=== PATIENT | female | born 1935 | race Caucasian/White ===

== ENCOUNTER 2017-01-22 07:07 | Inpatient (IN) ==
[2017-01-22] MEDS ORDERED: Ipratropium/Albuterol Neb 3 ML IH ONE (07:12)
--- NOTE | 2017-01-22 07:13 | Emergency Department Note ---
Disposition Clinical Impression: Community acquired pneumonia Disposition: Admitted As Inpatient Condition: Good SOB HPI - General Chief Complaint: ED Shortness of Breath/Dyspnea Stated Complaint: sob/resp distress Time Seen by Provider: 01/22/17 07:11 Nursing Notes Reviewed: Yes Vital Signs Reviewed: Yes - Related Data Home Medications Medication Instructions Recorded Confirmed BuPROPion SR (12 HR) [Wellbutrin 100 mg PO BID 01/18/17 01/22/17 SR] Clopidogrel [Plavix] 75 mg PO DAILY 01/18/17 01/22/17 Levothyroxine [Synthroid] 25 mcg PO DAILY 01/18/17 01/22/17 Loperamide [Imodium] 2 mg PO Q6H PRN 01/18/17 01/22/17 Mag Hydrox/Al Hydrox/Simeth 30 ml PO TID PRN 01/18/17 01/22/17 [Antacid Suspension] Magnesium Hydroxide [Milk of 30 ml PO PRN PRN 01/18/17 01/22/17 Magnesia] Omeprazole [PriLOSEC] 20 mg PO DAILY 01/18/17 01/22/17 Vit C/E/Zinc/Lutein/Zeaxanthin 1 tab PO DAILY 01/18/17 01/22/17 [Ocuvite Eye Health Gummies] Ipratropium/Albuterol Neb [Duoneb] 3 ml IH Q4HR PRN 01/22/17 01/22/17 OxyCODONE/APAP 5/325 [Percocet 1 tab PO Q4HR PRN 01/22/17 01/22/17 5/325 MG] Previous Rx's Medication Instructions Recorded Ibuprofen 400 mg PO TID #14 tablet 01/05/17 Fentanyl 100 mcg TD Q72H #5 patch.td72 01/18/17 Allergies Allergy/AdvReac Type Severity Reaction Status Date / Time aspirin Allergy Heartburn Verified 01/22/17 07:10 Penicillins Allergy Hives Verified 01/22/17 07:10 Past Medical History - Past Medical History Medical history: Reports: CVA, myocardial infarction, osteoporosis Psychiatric history: Reports: no psych history - Social History Smoking Status: Former smoker Smokeless Tobacco Status: No Alcohol use: Reports: none Drug use: Reports: none Course Vital Signs Temperature 98.2 F 01/22/17 07:11 Pulse Rate 128 01/22/17 07:11 Respiratory Rate 32 01/22/17 07:11 Blood Pressure 108/74 01/22/17 07:11 O2 Sat by Pulse Oximetry 85 01/22/17 07:11 Temperature 98.2 F 01/22/17 07:11 Pulse Rate 123 01/22/17 09:33 Respiratory Rate 16 01/22/17 10:00 Blood Pressure 119/89 01/22/17 10:00 O2 Sat by Pulse Oximetry 98 01/22/17 09:33 Oxygen Delivery Oxygen Delivery Non Rebreather Mask Shortness of Breath/Dyspnea - MDM Narrative Medical decision making narrative: I examined this patient and my medical decision-making was reviewed with the RADIO COMMENTATOR/PA/Advanced Practice Nurse/Resident Physician. I agree with the documented findings, disposition and treatment plan as described except to the extent set forth below. Patient arrives by EMS from nursing facility. She was seen by Dr. Kee and myself, I agree with her evaluation and management plan, supervised the care of the patient stay. Patient EMS and daughter state that she has had COPD. He is on oxygen sporadically but not all the time. Has had increased cough for last 24 hours. No history of pneumonia. She has no history of CHF. She does have wheezing and rhonchi. Had breathing treatments prior to arrival. We will go ahead and check labs EKG chest x-ray and reassess. She is a recent fall and fractured her left wrist she supposed to have surgery at [facility] tomorrow by Dr. Urrutia. Patient denies any other falls and daughter agrees with that. She is updated on the plan is in agreement with this. Chest X-Ray 01/22/17 07:12 IMPRESSION: Bibasilar airspace disease. D/ / Tera Fair MD / Tera Fair MD Interpreting Provider: Tera Fair MD 0747 hrs.: Patient does not show true pneumonia on x-ray. Has had a sputum change though. Started on Levaquin. If she has elevation in her white count then we will consider adding on a triple antibiotic therapy. Patient is doing well with her breathing treatment at this time. 0915 hours: Patient a repeat EKG which shows a sinus tachycardia, rates 121, QRS is 128, QTC is 396, has a right axis deviation and a right bundle branch block consistent with the previous EKG that was done earlier today but was difficult to read due to artifact from motion. Old EKG was in 2013 which showed a right axis deviation and right bundle branch block then also. Due to patient's elevated lactate and elevated white count. It were going to go ahead and finish fluids. Double cover her with antibiotics using aztreonam and Levaquin. Since she is penicillin allergic. We will hold off on vancomycin at this time. We spoke with hospitalist regarding this also. Her troponin is elevated but no chest pain here. She is allergic to aspirin so oriented to discuss the allergies aspirin whether she needs aspirin or Plavix. Patient will be admitted to The hospitalist service. Her critical care time exclusively separately billable procedures is 40 minutes. 0930 hrs.: Spoke with the patient about aspirin allergy shots on a true allergy but she said GI bleed in the past so will not administer aspirin or Plavix at this time. Family's agreement this plan. Troponin is elevated which is most likely due to elevation in her creatinine which is new for her also. - Lab Data Result diagrams: 01/22/17 08:37 01/22/17 08:37 Lab Results 01/22/17 01/22/17 01/22/17 Range/Units 08:37 08:37 08:37 WBC 13.1 H (4.3-11.1) K/mcL RBC 3.99 (3.82-4.97) M/mcL Hgb 10.1 L (11.5-15.4) g/dL Hct 32.4 L (35.3-44.9) % MCV 81.2 L (83.0-100.0) fL MCH 25.3 L (28.0-33.3) pg MCHC 31.2 L (31.6-35.5) g/dL RDW 15.1 H (11.5-14.5) % Plt Count 549 H D (140-400) K/mcL MPV 9.5 (9.4-12.4) fL Seg Neutrophils % 42.0 % Band Neutrophils % 50.0 H (0-4) % Lymphocytes % 2.0 % Monocytes % 6.0 % Neutrophils # 12.1 H (1.6-8.9) K/mcL Lymphocytes # 0.3 L (0.6-4.6) K/mcL Monocytes # 0.8 (0.0-1.3) K/mcL Platelet Estimate Increased H (Normal) Large Platelets Present A (Not Present) Immature Plt Fraction 3.9 (1.1-6.1) % Sodium 135 L (136-145) mEq/L Potassium 4.8 H (3.5-4.5) mEq/L Chloride 104 (98-109) mEq/L Carbon Dioxide 15 L (19-29) mEq/L BUN 53 H (7-20) mg/dL Creatinine 2.96 H (0.57-1.11) mg/dL Est GFR ( Amer) 18 L (> 60) Est GFR (Non-Af Amer) 15 L (> 60) BUN/Creatinine Ratio 18 (6-26) Glucose 113 H (70-99) mg/dL Calculated Osmolality 295 (280-300) Lactic Acid 2.9 H (0.5-2.2) mmol/L Calcium 8.9 (8.6-10.8) mg/dL Troponin I (0-0.03) ng/mL B-Natriuretic Peptide (0-100) pg/mL 01/22/17 01/22/17 Range/Units 08:37 08:37 WBC (4.3-11.1) K/mcL RBC (3.82-4.97) M/mcL Hgb (11.5-15.4) g/dL Hct (35.3-44.9) % MCV (83.0-100.0) fL MCH (28.0-33.3) pg MCHC (31.6-35.5) g/dL RDW (11.5-14.5) % Plt Count (140-400) K/mcL MPV (9.4-12.4) fL Seg Neutrophils % % Band Neutrophils % (0-4) % Lymphocytes % % Monocytes % % Neutrophils # (1.6-8.9) K/mcL Lymphocytes # (0.6-4.6) K/mcL Monocytes # (0.0-1.3) K/mcL Platelet Estimate (Normal) Large Platelets (Not Present) Immature Plt Fraction (1.1-6.1) % Sodium (136-145) mEq/L Potassium (3.5-4.5) mEq/L Chloride (98-109) mEq/L Carbon Dioxide (19-29) mEq/L BUN (7-20) mg/dL Creatinine (0.57-1.11) mg/dL Est GFR ( Amer) (> 60) Est GFR (Non-Af Amer) (> 60) BUN/Creatinine Ratio (6-26) Glucose (70-99) mg/dL Calculated Osmolality (280-300) Lactic Acid (0.5-2.2) mmol/L Calcium (8.6-10.8) mg/dL Troponin I 0.06 H* (0-0.03) ng/mL B-Natriuretic Peptide 351 H (0-100) pg/mL
--- NOTE | 2017-01-22 07:16 | Emergency Department Note ---
Disposition Clinical Impression: Community acquired pneumonia Disposition: Home, Self-Care Condition: Good Referrals: Mihaela Hernandez MD [Non-Partnered Physician] - Forms: ED Satisfaction Letter Time of Disposition: 09:25 General Adult HPI - General Chief complaint: ED Shortness of Breath/Dyspnea Stated complaint: sob/resp distress Time Seen by Provider: 01/22/17 07:11 Source: patient, family, EMS Limitations: no limitations Nursing Notes Reviewed: Yes Vital Signs Reviewed: Yes - History of Present Illness HPI Narrative: Shortness of breath began this morning. Several day history of productive cough. No fevers or chills. Does not have a history of CHF or COPD. Pain Scale: 8 - Related Data Home Medications Medication Instructions Recorded Confirmed BuPROPion SR (12 HR) [Wellbutrin 100 mg PO BID 01/18/17 01/18/17 SR] Clopidogrel [Plavix] 75 mg PO DAILY 01/18/17 01/18/17 Fentanyl 100 mcg TD Q72H 01/18/17 01/18/17 Levothyroxine [Synthroid] 25 mcg PO DAILY 01/18/17 01/18/17 Loperamide [Imodium] 2 mg PO Q6H PRN 01/18/17 01/18/17 Mag Hydrox/Al Hydrox/Simeth 30 ml PO TID PRN 01/18/17 01/18/17 [Antacid Suspension] Magnesium Hydroxide [Milk of 30 ml PO PRN PRN 01/18/17 01/18/17 Magnesia] Omeprazole [PriLOSEC] 20 mg PO DAILY 01/18/17 01/18/17 OxyCODONE/APAP 5/325 [Percocet 1 tab PO Q4HR PRN 01/18/17 01/18/17 5/325 MG] Vit C/E/Zinc/Lutein/Zeaxanthin 1 tab PO DAILY 01/18/17 01/18/17 [Ocuvite Eye Health Gummies] Previous Rx's Medication Instructions Recorded Ibuprofen 400 mg PO TID #14 tablet 01/05/17 Fentanyl 100 mcg TD Q72H #5 patch.td72 01/18/17 OxyCODONE/APAP 5/325 [Percocet 1 each PO Q4HR PRN #30 tablet 01/18/17 5/325 MG] Allergies Allergy/AdvReac Type Severity Reaction Status Date / Time aspirin Allergy Heartburn Verified 01/22/17 07:10 Penicillins Allergy Hives Verified 01/22/17 07:10 All systems ED: reviewed and negative except as stated. Constitutional: Denies: fever, chills ENT ED: Reports: congestion Cardiovascular: Denies: chest pain, palpitations, syncope Respiratory: Reports: cough (For 1 week.), dyspnea, sputum production. Denies: wheezes Gastrointestinal: Denies: abdominal pain, nausea, vomiting, diarrhea Genitourinary: Denies: urgency, dysuria, frequency Musculoskeletal: Denies: back pain, neck pain Neurological: Denies: headache, weakness Past Medical History - Past Medical History Medical history: Reports: CVA, myocardial infarction, osteoporosis Psychiatric history: Reports: no psych history - Social History Smoking Status: Former smoker Smokeless Tobacco Status: No Alcohol use: Reports: none Drug use: Reports: none Physical Exam - General Limitations: no limitations General appearance: alert, in no apparent distress - Head Head exam: atraumatic, normocephalic - Eye Eye exam: Present: normal appearance, PERRL, EOMI. Absent: scleral icterus - ENT ENT exam: normal exam, normal oropharynx, mucous membranes moist - Neck Neck exam: Present: normal inspection, full ROM, trachea midline - Chest Chest inspection: Present: normal inspection, symmetric chest wall rise. Absent : tenderness - Respiratory Respiratory exam: Present: respiratory distress (Moderate), other (Progress throughout.) - Cardiovascular Cardiovascular exam: Present: regular rate, normal rhythm, normal heart sounds - Abdominal Exam Abdominal exam: Present: soft, Non-Tender, normal bowel sounds - Extremities Exam Extremities exam: Present: normal inspection, full ROM, normal capillary refill. Absent: tenderness, pedal edema - Back Exam Back exam: Present: normal inspection, full ROM. Absent: tenderness - Neurological Exam Neurological exam: Present: alert, oriented X3 - Psychiatric Psychiatric exam: Present: normal affect, normal mood, other (Pleasantly demented.) - Skin Skin exam: Present: warm, dry, intact, normal color, rash. Absent: cyanosis Course Course Narrative: A male patient presenting to the emergency department by EMS. She is in moderate to severe respiratory distress. EMS advised they found patient with an oxygen saturation in the 70s. They gave her 2 DuoNeb's and she is now in the 90s. Patient has a recent history of several falls with a fractured left wrist that she is supposed to have surgery on tomorrow at [place]. Patient is on 4 L in and has oxygen saturation 88%. She has rhonchi throughout. She is able to speak but only in broken sentences. She appears pleasantly demented. Patient's daughter advises that her memory has been slipping recently. Advises that the patient has had a recent productive cough. We will get a basic lab workup on patient as well as from the sepsis panel. Chest x-ray. We are going to place the patient on BiPAP and attempt to deep suction patient. - Reevaluation(s) Reevaluation #1: Due to the risk of CHF we are going to withhold the fluid bolus for the sepsis panel at this time. Time: 07:20 Reevaluation #2: Patient resting comfortably on BiPAP. Pt still rhonchorous however patient work of breathing has eased. We will admit patient to the hospital. Still pending labs. Patient does have increased white count. We will treat her for community- acquired pneumonia. She also meets sepsis criteria. Patient's troponin is increased. She does have an allergy to aspirin which includes GI bleeding. We will withhold this at this time. Time: 08:27 - Consultations Consultation #1: Dr Wynne admitted patient in stable condition. I made her aware that the patient's troponin came back elevated. Time: 09:22 Vital Signs Temperature 98.2 F 01/22/17 07:11 Pulse Rate 128 01/22/17 07:11 Respiratory Rate 32 01/22/17 07:11 Blood Pressure 108/74 01/22/17 07:11 O2 Sat by Pulse Oximetry 85 01/22/17 07:11 Temperature 98.2 F 01/22/17 07:11 Pulse Rate 118 01/22/17 08:59 Respiratory Rate 37 01/22/17 07:35 Blood Pressure 100/64 01/22/17 08:59 O2 Sat by Pulse Oximetry 97 01/22/17 08:59 Oxygen Delivery Oxygen Delivery Bipap Medical Decision Making - Medical Records Medical records reviewed: Yes I reviewed the patient's medical records. - Lab Data Lab results reviewed: Yes I reviewed the patient's lab results. Result diagrams: 01/22/17 08:37 01/22/17 08:37 Lab Results 0501/22/17 01/22/17 Range/Units 08:37 08:37 08:37 WBC 13.1 H (4.3-11.1) K/mcL RBC 3.99 (3.82-4.97) M/mcL Hgb 10.1 L (11.5-15.4) g/dL Hct 32.4 L (35.3-44.9) % MCV 81.2 L (83.0-100.0) fL MCH 25.3 L (28.0-33.3) pg MCHC 31.2 L (31.6-35.5) g/dL RDW 15.1 H (11.5-14.5) % Plt Count 549 H D (140-400) K/mcL MPV 9.5 (9.4-12.4) fL Seg Neutrophils % 42.0 % Band Neutrophils % 50.0 H (0-4) % Lymphocytes % 2.0 % Monocytes % 6.0 % Neutrophils # 12.1 H (1.6-8.9) K/mcL Lymphocytes # 0.3 L (0.6-4.6) K/mcL Monocytes # 0.8 (0.0-1.3) K/mcL Platelet Estimate Increased H (Normal) Large Platelets Present A (Not Present) Immature Plt Fraction 3.9 (1.1-6.1) % Sodium 135 L (136-145) mEq/L Potassium 4.8 H (3.5-4.5) mEq/L Chloride 104 (98-109) mEq/L Carbon Dioxide 15 L (19-29) mEq/L BUN 53 H (7-20) mg/dL Creatinine 2.96 H (0.57-1.11) mg/dL Est GFR ( Amer) 18 L (> 60) Est GFR (Non-Af Amer) 15 L (> 60) BUN/Creatinine Ratio 18 (6-26) Glucose 113 H (70-99) mg/dL Calculated Osmolality 295 (280-300) Lactic Acid 2.9 H (0.5-2.2) mmol/L Calcium 8.9 (8.6-10.8) mg/dL Troponin I (0-0.03) ng/mL B-Natriuretic Peptide (0-100) pg/mL 05/08/17 05/08/17 Range/Units 08:37 08:37 WBC (4.3-11.1) K/mcL RBC (3.82-4.97) M/mcL Hgb (11.5-15.4) g/dL Hct (35.3-44.9) % MCV (83.0-100.0) fL MCH (28.0-33.3) pg MCHC (31.6-35.5) g/dL RDW (11.5-14.5) % Plt Count (140-400) K/mcL MPV (9.4-12.4) fL Seg Neutrophils % % Band Neutrophils % (0-4) % Lymphocytes % % Monocytes % % Neutrophils # (1.6-8.9) K/mcL Lymphocytes # (0.6-4.6) K/mcL Monocytes # (0.0-1.3) K/mcL Platelet Estimate (Normal) Large Platelets (Not Present) Immature Plt Fraction (1.1-6.1) % Sodium (136-145) mEq/L Potassium (3.5-4.5) mEq/L Chloride (98-109) mEq/L Carbon Dioxide (19-29) mEq/L BUN (7-20) mg/dL Creatinine (0.57-1.11) mg/dL Est GFR ( Amer) (> 60) Est GFR (Non-Af Amer) (> 60) BUN/Creatinine Ratio (6-26) Glucose (70-99) mg/dL Calculated Osmolality (280-300) Lactic Acid (0.5-2.2) mmol/L Calcium (8.6-10.8) mg/dL Troponin I 0.06 H* (0-0.03) ng/mL B-Natriuretic Peptide 351 H (0-100) pg/mL - EKG Data EKG #1 EKG attestation: Yes I reviewed and interpreted this EKG. EKG results narrative: Sinus tachycardia at a rate of 129. GA interval was 201. QRS duration is 187. QT is 175. QTC is 251. Poor Tracing due to patient's dyspnea. Does not appear to have ST elevation or depression noted however we will get a better EKG 1 patient's respiratory status improves.
[2017-01-22] MEDS ORDERED: 0.9 % Sodium Chloride 500 ML IVC ONE ×3 (07:20→22:30)
[2017-01-22] MEDS ORDERED: Levofloxacin 750 MG/150 ML 750 MG/150 ML BAG IVPB ONE (07:45)
[2017-01-22 08:48] LABS: Hematocrit 32.4 % (35.3-44.9); Immature Platelets 3.9 % (1.1-6.1); Lymphocytes # 0.3 K/mcL (0.6-4.6); Mean Corpuscular HGB Conc 31.2 g/dL (31.6-35.5); Mean Corpuscular Hemoglobin 25.3 pg (28.0-33.3); Mean Corpuscular Volume 81.2 fL (83.0-100.0); Mean Platelet Volume 9.5 fL (9.4-12.4); Monocytes # 0.8 K/mcL (0.0-1.3); Platelet Count 549 K/mcL (140-400); Red Blood Count 3.99 M/mcL (3.82-4.97); Red Cell Distribution Width 15.1 % (11.5-14.5)
[2017-01-22 09:00] LABS: Calcium 8.9 mg/dL (8.6-10.8); Potassium 4.8 mEq/L (3.5-4.5)
[2017-01-22 09:03] LABS: Hemoglobin 10.1 g/dL (11.5-15.4)
[2017-01-22 09:05] LABS: Neutrophils # 12.1 K/mcL (1.6-8.9); Platelet Estimate Increased (Normal)
[2017-01-22 09:06] LABS: Large Platelets Present (Not Present)
[2017-01-22] MEDS ORDERED: Aztreonam 2,000 MG in D5% in Water (Mini-Bag+) 100 ML IVPB ONE (09:11)
[2017-01-22] MEDS ORDERED: 0.9 % Sodium Chloride 1,000 ML IVC SCH (09:30)
[2017-01-22] MEDS ORDERED: Naloxone 0.4 MG/ML INJ IVP PRN (09:41)
[2017-01-22] MEDS ORDERED: Vancomycin 750 MG in D5% in Water 250 ML IVPB ONE (09:43)
--- NOTE | 2017-01-22 09:54 | Internal Med History&Physical ---
Date of Encounter: 01/22/17 Time of Encounter: 09:49 Assessment and Plan (1) Sepsis Current visit: Yes Status: Acute 2/2 b/l pneumonia and UTI. hypotensive and tachycardic, elevated wbc with lactic acid of 2.9. she is from [place], will treat as HAP. given aztreonam, levo , she is allergic to penicillin. will add vanco sputum for gram stain and cx, blood cx,urine cx, urine for strep ag and legionella will check ECHO, IVF as tolerated. Qualifiers: Sepsis type: sepsis due to unspecified organism Qualified Code(s): A41.9 - Sepsis, unspecified organism (2) Pneumonia Current visit: Yes Status: Acute b/l infiltrates on CXR, plan as above. will treat as HAP. NPO for now, speech consult for risk of aspiration before starting diet. Qualifiers: Aspiration pneumonia type: unspecified Laterality: bilateral Lung location: lower lobe of lung Qualified Code(s): J69.0 - Pneumonitis due to inhalation of food and vomit (3) ALEJA (acute kidney injury) Current visit: Yes Status: Acute possible 2/2 sepsis, will monitor chem, may worsen with administration of vanco. will monitor urine output. give IVF as tolerated, (4) Dementia Current visit: Yes Status: Acute pleasantly demented. h/o mulitple falls. will need to return to SNF on dc Qualifiers: Dementia type: unspecified type Dementia behavioral disturbance: without behavioral disturbance Qualified Code(s): F03.90 - Unspecified dementia without behavioral disturbance (5) Acute respiratory failure Current visit: Yes Status: Acute acute hypoxic respiratory failure 2/2 b/l lower lobe pneumonia. Saturation noted to be on 70s at presentation. will continue BIPAP support for now, tolerating well and sats maintained. may wean off as able. will add duonebs and steroids, has h/o COPD with bl rhonchi. Qualifiers: Respiratory failure complication: hypoxia Qualified Code(s): J96.01 - Acute respiratory failure with hypoxia (6) COPD (chronic obstructive pulmonary disease) Current visit: Yes Status: Acute as in acute respiratory failure Qualifiers: COPD type: emphysema Emphysema type: unspecified Qualified Code(s): J43.9 - Emphysema, unspecified (7) Elevated troponin Current visit: Yes Status: Acute elevated trop at 0.06 , no chest pain. EKG with no ischemic changes possible demand ischemia 2/2 sepsis and hypoxia. less likely ACS, will not trend at this time. (8) Metabolic acidosis Current visit: Yes Status: Acute she has mild AGMA possible from acute on chronic kidney injury. ph of 7.22 and bicarb of 15, AG of 16. will do bicarb drip for now, monitor chem, goal bicarb of 22. (9) UTI (urinary tract infection) Current visit: Yes Status: Acute ua shows large LE. has been started on antibiotics, will follow urine cx results. Qualifiers: Urinary tract infection type: site unspecified Hematuria presence: without hematuria Qualified Code(s): N39.0 - Urinary tract infection, site not specified Internal Medicine - H&P: HPI Chief complaint: sob Admitted From: Long-term Nursing Facility Plans for Post Hospital Care: Transfer Residential Facility History of present illness: Ms. Valentin is a 81 year old female with PMH of COPD, HTN presented to ED in moderate to severe respiratory distress. EMS advised they found patient with an oxygen saturation in the 70s. They gave her 2 DuoNeb's which improved her sats to 90s. Patient has a recent history of several falls with a fractured left wrist that she is supposed to have surgery on tomorrow at [place]. per the daughter at the bedside, she has increased shortness of breath with cough [facility] the [facility] and is getting worse. She denies any chest pain no fever, no nausea or vomiting or abdominal pain. She is pleasantly demented and as per the daughter she wishes to be resuscitated if need be. seh was placed on BIPAP at ED which has improved her sats to higher 90s. As per the daughter, she says she was diagnosed with COPD and was a past smoker. She only takes oxygen as needed at home however was not on any inhalers. AT the time of my assesment, she looks alert and awake adn is tolerating BIPAP. Past Med Surg Social Fam HX - Past Medical History Medical history: CVA, myocardial infarction, osteoporosis Psychiatric history: no psych history - Social History Smoking Status: Former smoker Smokeless Tobacco Status: No Alcohol use: none Drug use: none Internal Medicine - H&P: Meds Ibuprofen 400 mg PO TID #14 tablet 01/05/17 [Rx] BuPROPion SR (12 HR) [Wellbutrin SR] 100 mg PO BID 01/18/17 [History] Clopidogrel [Plavix] 75 mg PO DAILY 01/18/17 [History] Fentanyl 100 mcg TD Q72H #5 patch.td72 01/18/17 [Rx] Levothyroxine [Synthroid] 25 mcg PO DAILY 01/18/17 [History] Loperamide [Imodium] 2 mg PO Q6H PRN 01/18/17 [History] Mag Hydrox/Al Hydrox/Simeth [Antacid Suspension] 30 ml PO TID PRN 01/18/17 [ History] Magnesium Hydroxide [Milk of Magnesia] 30 ml PO PRN PRN 01/18/17 [History] Omeprazole [PriLOSEC] 20 mg PO DAILY 01/18/17 [History] Vit C/E/Zinc/Lutein/Zeaxanthin [OcuvShowKit Eye Health Gummies] 1 tab PO DAILY 01/18 [History] Ipratropium/Albuterol Neb [Duoneb] 3 ml IH Q4HR PRN 01/22/17 [History] OxyCODONE/APAP 5/325 [Percocet 5/325 MG] 1 tab PO Q4HR PRN 01/22/17 [History] Allergies aspirin Allergy (Verified 01/22/17 07:10) Heartburn Penicillins Allergy (Verified 01/22/17 07:10) Hives ROS unobtainable: due to mental status All Systems PM: A 10-system review of systems was performed and is negative for pertinent findings except as documented above in the HPI. - Constitutional Vitals: Temp Pulse Resp BP Pulse Ox 98.2 F 123 37 107/42 98 01/22/17 07:11 01/22/17 09:33 01/22/17 07:35 01/22/17 09:33 01/22/17 09:33 General appearance: Present: A&O X 2, mild distress Exam: alert and awake. neck- supple chest- b/l wheezing and coarse breath sounds CVS- s1 and s2, no mr//g abd-soft, non tender, bs are present ext- no edema no focal neuro defecits Internal Med - H&P Results - Labs CBC & Chem 7: 01/22/17 08:37 01/22/17 08:37
[2017-01-22] MEDS ORDERED: *HR* LORazepam 2 MG/ML VIAL IVP ONE (10:43)
[2017-01-22] MEDS ORDERED: *HR* LORazepam 2 MG/ML VIAL ONE ×2 (10:48→20:01)
[2017-01-22] MEDS: Pantoprazole 40 MG VIAL IVP SCH (11:27)
[2017-01-22] MEDS: methylPREDNISolone 125 MG/2 ML VIAL IVP SCH ×2 (11:27→16:27)
[2017-01-22 11:51] LABS: ABG Base Excess -12.4 mEq/L (-2.0 to 3.0); ABG HCO3 14.3 mEQ/L (21-27); ABG Oxygen Saturation 97 % (95-98); ABG PCO2 35 mmHg (35-45); ABG PH 7.22 pH Units (7.32-7.45); ABG PO2 112 mmHg (85-104); ABG TCO2 15.4 mEq/L (20-26)
[2017-01-22 11:52] LABS: Blood Gas FiO2 80 %
[2017-01-22] MEDS: Ipratropium/Albuterol Neb 3 ML IH SCH ×4 (11:58→23:49)
[2017-01-22] MEDS ORDERED: Sod Bicarb 150mEq/D5W 150 MEQ/1,000 ML IV.SOLN IVC SCH (12:45)
[2017-01-22 12:50] LABS: Bilirubin,Urine Negative (Negative); Blood,Urine Small (Negative); Clarity,Urine Cloudy (Clear); Color,Urine Yellow (Yellow); Glucose,Urine (UA) Normal (Normal); Ketones,Urine Negative (Negative); Leukocyte Esterase,Urine Large (Negative); Nitrite,Urine Negative (Negative); PH,Urine 5.5 pH Units (5.0-8.0); Protein,Urine 30 mg/dL (Neg-Trace); Specific Gravity,Urine 1.017 (1.010-1.025); Urobilinogen,Urine Normal (Normal)
[2017-01-22 12:52] LABS: Bacteria,Urine Many per hpf (None-Few); Hyaline Casts,Urine Few per lpf (None-Few); RBC,Urine 0-3 per hpf (0-3); Squamous Epithelial Cell,Urine Many per lpf (None-Few); WBC,Urine 50-100 per hpf (0-3)
[2017-01-22] MEDS ORDERED: *HR* OxyCODONE/APAP 5/325 TABLET PO PRN (15:42)
[2017-01-22] MEDS: Sodium Bicarbonate 150 MEQ in D5% in Water 1,000 ML IVC SCH (16:00)
--- NOTE | 2017-01-22 17:27 | ECHO - Doppler Report ---
Echocardiogram Name: Bere Valentin Date of Study: 01/22/2017 Date: 1935 Ht: 62.0 in Medical Record#: [id number] Age: 81 Wt: 110.0 lb Gender: Female BSA: 1.48 Order #: [id number] Location: [facility] Room #: 2N14 Reading Physician: Jose Danielle MD, [facility] Pinking Sewing Machine Operator: Vee Rosado Ordering Physician: Renetta John MD Primary Physician: Javan Mcintyre MD Indications: r/o CHF Impressions: Technically suboptimal due to clinical status (respiratory distress, on BIPAP, tachycardic). LV systolic function was not well assessed on this study. Appears low-normal with estimated LVEF 50%. Mild asymmetric LV basal septal hypertrophy. No evidence of LVOT obstruction. Normal right ventricular size and function. No significant valvular dysfunction. Unable to estimate RVSP due to inadequate TR jet. Left Ventricular Wall Motion: Rest Echo Findings All wall segments showed normal motion. Findings: Study Quality * Technically suboptimal due to clinical status (respiratory distress, on BIPAP, tachycardic). ECG Findings * Probably sinus tachycardia. Left Ventricle * LV systolic function was not well assessed on this study. Appears low-normal with estimated LVEF 50%. * Mild asymmetric LV basal septal hypertrophy. No evidence of LVOT obstruction. * Indeterminate diastolic function. Right Ventricle * Normal right ventricular size and function. Left Atrium * Normal left atrial size. Right Atrium * Normal right atrial size. Aorta * Normally sized aortic root. Pericardium * There is a trivial pericardial effusion present. IVC * Normal IVC dimensions and inspiratory collapse. Aortic Valve * Trileaflet aortic valve. * No aortic stenosis. * Trace aortic regurgitation. Mitral Valve * Normal mitral valve structure. * No mitral stenosis. * Trace mitral regurgitation. Tricuspid Valve * Normal tricuspid valve structure. * No tricuspid stenosis. * Trace tricuspid regurgitation. * Unable to estimate RVSP due to inadequate TR jet. Pulmonic Valve * Pulmonic valve not well visualized. * No pulmonic stenosis. * No pulmonic regurgitation. History Hypertension Years 64 Packs 1 Family History of CAD History of CAD/PTCA Myocardial Infarction Congestive Heart Failure 10/16/2013 a Previous Echo was performed. Measurements: BP: 125/ 61 2D Normal Values RVIDd: 3.10 cm IVSd: 1.20 cm 0.6 - 1.0 cm LVIDd: 3.00 cm 3.7 - 5.6 cm LVPWd: 1.00 cm 0.6 - 1.1 cm LVIDs: 2.10 cm 1.5 - 3.6 cm AO: 3.50 cm < 4.0 cm %FS: 30.00 cm >25 % LA volume: 31 Updated by Jose Danielle MD, [facility] on 01/22/2017 5:23:46 PM electronically signed on 01/22/2017 5:24:14 PM with status of Final Wall Motion [place]: 1=Normal, 2=Hypokinesis, 3=Akinesis, 4=Dyskinesis, 5=Aneurysmal, 6=Hyperkinetic, X=Not Visualized (Blank)=Missing
--- NOTE | 2017-01-22 17:31 | Electrocardiograph Report ---
[address] [address] Test Date: 2017-01-22 Pat Name: Bere Valentin Department: 102 Room: 2N14 Gender: F Worm Picker: : 1935 Requested By: Barbara Kee Order Number: [id number] Reading MD: Joe Ba Measurements Intervals [place] Rate: 129 P: 232 AR: 201 QRS: 53 QRSD: 187 T: 0 QT: 175 QTc: 251 Interpretive Statements ECTOPIC ATRIAL TACHYCARDIA WITH OCCASIONAL VENTRICULAR PREMATURE COMPLEXES INDETERMINATE AXIS INTRAVENTRICULAR CONDUCTION DELAY BASELINE ARTIFACT Electronically Signed On 01-22-2017 17:30:14 EDT by Joe Ba
--- NOTE | 2017-01-22 17:35 | Electrocardiograph Report ---
[address] [address] Test Date: 2017-01-22 Pat Name: Bere Valentin Department: 102 Room: 2N14 Gender: F Family Assistant: : 1935 Requested By: Diogo Chaudhari Order Number: [id number] Reading MD: Joe Ba Measurements Intervals [place] Rate: 121 P: 7 MD: 173 QRS: 110 QRSD: 128 T: 2 QT: 324 QTc: 396 Interpretive Statements SINUS TACHYCARDIA MARKED RIGHT AXIS DEVIATION RIGHT BUNDLE BRANCH BLOCK Electronically Signed On 01-22-2017 17:33:44 EDT by Joe Ba
[2017-01-22] MEDS ORDERED: *HR* Etomidate 20 MG/10 ML AMPUL IVP ONE ×2 (18:31→22:56)
[2017-01-22] MEDS ORDERED: *HR* Midazolam HCl 5 MG/5 ML VIAL IVP ONE ×2 (18:31→22:56)
[2017-01-22] MEDS ORDERED: *HR* LORazepam 2 MG/ML VIAL IVP PRN (19:58)
[2017-01-22 21:07] LABS: ABG Base Excess -7.1 mEq/L (-2.0 to 3.0); ABG HCO3 17.5 mEQ/L (21-27); ABG Oxygen Saturation 96 % (95-98); ABG PCO2 31 mmHg (35-45); ABG PH 7.36 pH Units (7.32-7.45); ABG PO2 89 mmHg (85-104); ABG TCO2 18.5 mEq/L (20-26)
[2017-01-22 21:08] LABS: Blood Gas FiO2 60 %
[2017-01-22 22:17] LABS: Calcium 8.1 mg/dL (8.6-10.8); Potassium 4.8 mEq/L (3.5-4.5)
--- NOTE | 2017-01-22 22:50 | Event Note ---
Date of Encounter: 01/22/17 Time of Encounter: 22:20 81 year old female with a history of COPD, HTN presented to ED in moderate to severe respiratory distress. EMS reported finding patient with an oxygen saturation in the 70s. She was admitted as a case of Hypoxic respiratory failure /severe sepsis secondary to pneumonia and UTI and started on NIMV. She was transferred to the ICU tonight due to imminent respiratory failure from increased work of breathing with her RR ranging btn mid 30's to 60's. She will still remain under the hospitalist service.
[2017-01-22] MEDS ORDERED: Lacri-Lube 3.5 GM TUBE BOTH EYES PRN (23:11)
[2017-01-22] MEDS ORDERED: *HR* Morphine 2 MG/ML SYRINGE ONE (23:14)
[2017-01-22] MEDS ORDERED: *HR* Morphine 2 MG/ML SYRINGE IVP ONE (23:14)
[2017-01-22] MEDS: FentaNYL (PF) 1,000 MCG in 0.9 % Sodium Chloride 80 ML IVC SCH (23:29)
--- NOTE | 2017-01-22 23:34 | Procedure Note ---
Date of procedure: 01/22/17 Pre-op diagnosis: Respiratory distress Post-op diagnosis: same Procedure: Verbal consent was obtained from the daughter. The procedure was considered emergent. The patient was transferred to the ICU on BiPAP. She continued to have increased work of breathing and respiratory fatigue. The patient was sedated using 5 mg of Versed and 20 mg of etomidate. She oxygenated well with the bag valve mask. Glidascope was used and the vocal cords were visualized. A 7.5 endotracheal tube was then passed to the vocal cords under direct visualization. Post procedure there were bilateral breath sounds and positive color change in the CO2 detector. Chest x-ray is pending. Patient tolerated the procedure well, there were no immediate complications. The attending physician, Dr. Leung, was present for the entire procedure. Anesthesia: NANCY Surgeon: Jose Wolff Estimated blood loss (cc): 0 IV fluids (cc): 0 Urine output (cc): 0 Pathology: none sent Condition: critical Disposition: ICU
[2017-01-23 00:35] LABS: ABG Base Excess -7.4 mEq/L (-2.0 to 3.0); ABG Oxygen Saturation 87 % (95-98); ABG PCO2 35 mmHg (35-45); ABG PH 7.32 pH Units (7.32-7.45); ABG PO2 57 mmHg (85-104); ABG TCO2 19.1 mEq/L (20-26)
[2017-01-23 00:36] LABS: Blood Gas FiO2 70 %
[2017-01-23] MEDS: methylPREDNISolone 125 MG/2 ML VIAL IVP SCH ×2 (01:53→10:10)
[2017-01-23] MEDS: Lacri-Lube 3.5 GM TUBE BOTH EYES SCH ×5 (01:53→15:12)
[2017-01-23] MEDS: Sodium Bicarbonate 150 MEQ in D5% in Water 1,000 ML IVC SCH (02:50)
[2017-01-23] MEDS: Ipratropium/Albuterol Neb 3 ML IH SCH ×4 (03:20→15:23)
[2017-01-23 04:32] LABS: ABG Base Excess -6.8 mEq/L (-2.0 to 3.0); ABG HCO3 18.5 mEQ/L (21-27); ABG Oxygen Saturation 84 % (95-98); ABG PCO2 35 mmHg (35-45); ABG PH 7.33 pH Units (7.32-7.45); ABG PO2 53 mmHg (85-104); ABG TCO2 19.6 mEq/L (20-26)
[2017-01-23 04:33] LABS: Blood Gas FiO2 45 %
[2017-01-23] MEDS ORDERED: *HR* LORazepam 2 MG/ML VIAL IVP ONE (04:55)
[2017-01-23] MEDS ORDERED: 0.9 % Sodium Chloride 500 ML IVC ONE (05:47)
[2017-01-23 06:43] LABS: Acinetobacter baumannii by PCR Not Detected (Not Detect); Candida albicans by PCR Not Detected (Not Detect); Candida glabrata by PCR Not Detected (Not Detect); Candida krusei by PCR Not Detected (Not Detect); Candida parapsilosis by PCR Not Detected (Not Detect); Candida tropicalis by PCR Not Detected (Not Detect); Enterococcus by PCR Not Detected (Not Detect); Escherichia coli by PCR Not Detected (Not Detect); Klebsiella oxytoca by PCR Not Detected (Not Detect); Klebsiella pneumoniae by PCR Not Detected (Not Detect); Pseudomonas aeruginosa by PCR Not Detected (Not Detect); Serratia marcescens by PCR Not Detected (Not Detect); Staphylococcus aureus by PCR ***DETECTED*** (Not Detect); Streptococcus agalactiae(B)PCR Not Detected (Not Detect); Streptococcus by PCR Not Detected (Not Detect); Streptococcus pneumoniae PCR Not Detected (Not Detect); Streptococcus pyogenes (A) PCR Not Detected (Not Detect); blaKPC Carbapenem-Resist Gene Not Detected (Not Detect); mecA Methicillin-Resist Gene Not Detected (Not Detect); vanA/B Vancomycin-Resist Genes Not Detected (Not Detect)
[2017-01-23] MEDS ORDERED: *HR* Adenosine 6 MG/2 ML VIAL IVP ONE (06:48)
[2017-01-23] MEDS: FentaNYL (PF) 1,000 MCG in 0.9 % Sodium Chloride 80 ML IVC SCH (07:35)
[2017-01-23] MEDS ORDERED: 0.9 % Sodium Chloride 1,000 ML ONE (07:49)
[2017-01-23 07:56] LABS: ABG Base Excess -5.3 mEq/L (-2.0 to 3.0); ABG Oxygen Saturation 80 % (95-98); ABG PCO2 37 mmHg (35-45); ABG PH 7.34 pH Units (7.32-7.45); ABG TCO2 21.1 mEq/L (20-26)
[2017-01-23 07:58] LABS: ABG PO2 47 mmHg (85-104); Blood Gas FiO2 60 %; Blood Gas PEEP 7 cm H2O; Blood Gas Respiration Rate 12; Blood Gas VT 400 cc
[2017-01-23] MEDS ORDERED: Aztreonam 1,000 MG in D5% in Water (Mini-Bag+) 100 ML IVPB SCH (08:00)
[2017-01-23] MEDS ORDERED: Vancomycin 750 MG in D5% in Water 250 ML IVPB ONE (09:00)
[2017-01-23] MEDS ORDERED: Levothyroxine 25 MCG TABLET PO SCH (09:00)
[2017-01-23] MEDS ORDERED: Chlorhexidine Rinse 15 ML MOUTHWASH MM SCH (09:00)
--- NOTE | 2017-01-23 09:03 | Procedure Note ---
<Ileana Hagen - Last Filed: 01/23/17 15:12> Date of procedure: 01/23/17 Pre-op diagnosis: Septic shock Post-op diagnosis: same Procedure: Right internal jugular central line placement Consent: Detailed explanation of the procedure, treatment options, risks including but not limited to infection and bleeding, and benefits were explained to patients family and consent was obtained. Technique: Time out was preformed identifying the correct procedure, the correct location with the nursing staff. The right neck was prepped with 2% chlorhexidine and draped with full length sterile sheet in the usual fashion. The right internal jugular vein was access under ultrasound guidance with an 18 gauge needle. A triple lumen was inserted via the seldinger technique. Guide wire was confirmed to be within the internal jugular vein via ultrasound. Blood was withdrawn from all lumens and flushed with normal saline. The catheter was suture in place and a sterile dressing was applied over the site prior to removal of the drapes. The patient tolerated the procedure well and there were no complications. CXR is pending at this time. Attending: Dr. Wyatt Blanca Senior Resident: Claude Langley, PGY3 Resident: Ileana Hagen, PGY1 Condition: stable Disposition: ICU <Tera Blanca - Last Filed: 01/23/17 20:24> Procedure: I examined this patient and my medical decision-making was reviewed with the WATERSIDE WORKER/PA/Advanced Practice Nurse/Resident Physician. I agree with the documented findings, disposition and treatment plan as described except to the extent set forth below. I have personally supervised residents placing central line.
[2017-01-23 09:30] LABS: Hematocrit 27.8 % (35.3-44.9); Mean Corpuscular HGB Conc 32.4 g/dL (31.6-35.5); Mean Corpuscular Hemoglobin 25.6 pg (28.0-33.3); Mean Platelet Volume 9.2 fL (9.4-12.4); Platelet Count 329 K/mcL (140-400); Red Blood Count 3.52 M/mcL (3.82-4.97); Red Cell Distribution Width 15.2 % (11.5-14.5)
[2017-01-23] MEDS ORDERED: Dexmedetomidine HCl 400 MCG/100 ML MLS IVC SCH (09:30)
[2017-01-23 10:05] LABS: Lymphocytes # 0.7 K/mcL (0.6-4.6); Monocytes # 0.1 K/mcL (0.0-1.3); Neutrophils # 1.5 K/mcL (1.6-8.9)
[2017-01-23 10:06] LABS: Platelet Estimate Normal (Normal); Toxic Granulation Present (Not Present)
[2017-01-23 10:07] LABS: Burr Cells 1+ (Not Present)
[2017-01-23] MEDS: Pantoprazole 40 MG VIAL IVP SCH (10:10)
[2017-01-23] MEDS ORDERED: Furosemide 40 MG/4 ML VIAL IVP ONE (10:41)
[2017-01-23 10:47] LABS: Magnesium 1.3 mg/dL (1.6-2.6); Phosphorous 2.6 mg/dL (2.3-4.7); Potassium 4.4 mEq/L (3.5-4.5)
[2017-01-23 10:48] LABS: Calcium 7.6 mg/dL (8.6-10.8)
[2017-01-23] MEDS ORDERED: Norepinephrine 4 MG in D5% in Water 250 ML IVC SCH (11:00)
--- NOTE | 2017-01-23 11:22 | Event Note ---
<HieuIleana Garcia - Last Filed: 01/23/17 17:57> Date of Encounter: 01/23/17 Time of Encounter: 11:21 Dr. Blanca and ICU team called to patient's room for difficulty oxygenating patient and bradycardia. At 10:55 patient found to have no pulses, CPR was started and a code blue was initiated. Patient was given one dose of epi. After 2 minutes of CPR, pulse check was performed and patient had a palpable puse with a heart rate approximately 66. At 10:58, ventricular tachycardia was noted on heart monitor and patient was given 100 joules cardioversion. Ventricular tachycardia continued with pulses. Patient was then cardioverted at 200 joules and ventricular tachycardia continued. Patient was then given 6mg adenosine and converted to a heart rate of 82 with palpable pulse. On review of patient labs, patient was becoming more acidotic this morning. As such, patient was given 1amp bicarb. Patient's magnesium was also lower so 2g magnesium was started. Heart rate elevated to 140s. As such patient, was given another 6mg of adenosine. Heart rate continued to increase into the 210s. Patient was cardioverted at 150 joules and heart rate decreased to 115. At this time, patient had palpable pulse. Blood pressure was stable at 123/67 and oxygen saturation 98%. Patient was hooked back to the vent. Repeat labs were ordered. Will continue to monitor vital signs. Plan to place an arterial line for closer blood pressure monitoring especially as patient may require vasopressors. <Tera Blanca - Last Filed: 01/23/17 20:26> Date of Encounter: 01/23/17 I examined this patient and my medical decision-making was reviewed with the LENS MATCHER/PA/Advanced Practice Nurse/Resident Physician. I agree with the documented findings, disposition and treatment plan as described except to the extent set forth above. Patient had code blue and with treatment outlined above she had ROSC and family updated.
[2017-01-23 11:27] LABS: Mean Corpuscular HGB Conc 30.8 g/dL (31.6-35.5); Mean Corpuscular Hemoglobin 25.3 pg (28.0-33.3); Mean Corpuscular Volume 82.3 fL (83.0-100.0); Mean Platelet Volume 9.5 fL (9.4-12.4); Nucleated Red Blood Cells 0.7 /100 WBC (0); Platelet Count 330 K/mcL (140-400); Red Blood Count 3.16 M/mcL (3.82-4.97); Red Cell Distribution Width 15.4 % (11.5-14.5)
[2017-01-23 11:35] LABS: Ionized Calcium 0.96 mmol/L (1.15-1.35)
[2017-01-23 11:39] LABS: Calcium 7.2 mg/dL (8.6-10.8); Potassium 5.2 mEq/L (3.5-4.5)
[2017-01-23 11:41] LABS: Phosphorous 6.1 mg/dL (2.3-4.7)
[2017-01-23 12:03] LABS: Dohle Bodies Present (Not Present); Lymphocytes # 1.5 K/mcL (0.6-4.6); Monocytes # 0.2 K/mcL (0.0-1.3); Neutrophils # 3.2 K/mcL (1.6-8.9); Toxic Granulation Present (Not Present)
[2017-01-23 12:04] LABS: Platelet Estimate Normal (Normal)
[2017-01-23] MEDS ORDERED: *HR* Heparin 5,000 UNIT/ML VIAL SQ SCH (14:00)
[2017-01-23] MEDS ORDERED: Cefepime HCl 1,000 MG in D5% in Water (Mini-Bag+) 100 ML IVPB SCH (14:00)
--- NOTE | 2017-01-23 15:10 | Pulmonology Consult Note ---
<Ileana Hagen - Last Filed: 01/23/17 17:37> Date of Encounter: 01/23/17 Time of Encounter: 15:09 Assessment and Plan (1) Septic shock Status: Acute Patient with severe septic shock as defined by elevated lactic acid and end organ perfusion as evidenced by ALEJA and acute respiratory failure. Patient is requiring vasopressors to maintain MAP >60. Septic shock is likely secondary to staph aureus bacteriemia and mutlifocal pneumonia. Blood cultures currently growing gram-positive cocci x 2. Serology PCR from blood draw showed staph aureus. Will monitor blood pressure and modulate with vasopressors as indicated. As patient is in severe sepsis severe respiratory failure, will continue broad-spectrum, empiric antibiotics. Will continue vancomycin. Patient initially on azetreonam changed to cefepime for better gram negative and pseudomonas coverage. Patient received initial 30ml/kg bolus for septic shock, receiving 4L of fluid yesterday alone. Will be more judicious to avoid fluid overload. First attempt unsuccessful at placing arterial line for blood pressure monitoring, will attempt in a different site as patient would likely benefit from improved blood pressure monitoring. 1. Continue levophed for blood pressure modulation. Will add second vasopressor if needed. 2. Continue vancomycin and cefepime. 3. Follow blood culture results. 4. Will continue to trend lactic acidosis. (2) Acute respiratory failure with hypoxia Status: Acute Patient with acute respiratory failure with hypoxia requiring intubation secondary to multilobar pneumonia. She has proved difficulty to ventilate today. Currently set on volume control with FiO2 of 100% and PEEP of 10 to maintain oxygenation saturation. CXR this morning showed Bl airspace opacities likely multifocal pneumonia. Her respiratory failure is likely multifactorial due to her severe pneumonia, her underlying lung disease and possibly some volume overload. Discussion earlier today on possibility of placing the patient prone to increase recruitment. Will continue with current vent setting and wean if tolerated. If patient is unable to maintain O2 saturation on such high level, will have to consider prone position or other recruitment options. 1. Continue vent settings and wean as tolerated 2. Continue duoneb breathing treatments scheduled 3. Stopped solu-medrol as this does not appear to be due to COPD exacerbation and patient is not wheezing on exam. 4. Continue antibiotics to treat pneumonia (3) Multifocal pneumonia Status: Acute CXR revealed multifocal pneumonia. Sputum cultures and blood cultures growing gram-positive cocci. Blood PCR positive for staph aureus. Patient currently on vancomycin. Aztreonam was changed to cefepime for better pseudomonas coverage especially given that patient lives at a long-term increasing risk of hospital associated pneumonia. Probably cultures have not resulted, based on serology feel that MRSA is less likely. 1. Continue ventilatory support and wean as tolerated. 2. Continue antibiotic coverage with vancomycin and cefepime 3. Follow sputum culture results. (4) [id number] kidney injury Status: Acute Patient with history of chronic kidney disease with a baseline creatinine around 1.8. Acute kidney injury with creatinine of 3.15, GFR of 14. This ALEJA is likely secondary to medications as well as decrease perfusion with septic shock. Urine output is decreased. Will avoid nephrotoxic medication if possible and provide hydration as tolerated. Focus will be on resolving septic shock in hopes that kidneys will improve with improved blood flow. 1. Avoid nephrotoxic drugs. Provide hydration as possible 2. Will monitor kidney function. (5) UTI (urinary tract infection) Status: Acute Urine culture growing gram negative rods. She is no on cefepime for coverage. Will follow cultures and adjust treatment based on sensitivities if needed. 1. Follow cultures. Qualifiers: Urinary tract infection type: site unspecified Hematuria presence: without hematuria Qualified Code(s): N39.0 - Urinary tract infection, site not specified (6) Lactic acid acidosis Status: Acute Patient with severe lactic acidosis, increasing 2.2 > 3.7 > 5.8 > 12.8. This is secondary to septic shock, acute respiratory failure and the loss of pulse requiring CPR this morning. Will continue to monitor lactic acid. (7) Hyperkalemia Status: Acute Patient with hyperkalemia improved with hydration. Last K was 5.2, likely secondary to patients acute kidney injury. Will continue to monitor. Continuous EKG monitoring. (8) Hypomagnesemia Status: Acute Patient with low magnesium. Repleted during code. Will monitor and replete as needed. (9) COPD (chronic obstructive pulmonary disease) Status: Acute Patient with underlying COPD requiring occasional supplementla oxygen at home. Do not believe patient is in active COPD exacerbation and patient is not wheezing on exam. Will proved ventilatory support as needed. Continue duonebs every 4 hours scheduled. Will stop systemic steroids at this time. Qualifiers: COPD type: emphysema Emphysema type: unspecified Qualified Code(s): J43.9 - Emphysema, unspecified (10) Elevated troponin Status: Acute Patient with elevated troponin of 0.06 on admission. This is likely secondary to demand ischemia. Patient had no changes in EKG. Will trend out EKG. (11) Elevated brain natriuretic peptide (BNP) level Status: Acute Patient with BMP of 1435 today up from 351 yesterday. Recent ECHO unable to determine ejection fraction of heart. It is possible that patient has some underlying diastolic dysfunction and she has some fluid accumulation after the large amount of fluid resuscitation yesterday. This may be contributing to her respiratory distress. Will continue to monitor respiratory status and be judicious with fluids. (12) Metabolic acidosis Status: Acute Patient presented with mild anion gap metabolic acidosis believed to be secondary to acute on chronic kidney injury. Last ABG with pH of 7.34 and pCO2 of 37. On BMP, CO2 was 18. Patient given bicarb during code, however do not feel that bicarp drip is indicated at this time. Will focus on improving respiratory status and continue to monitor ABG and BMP (13) Discussion about advance care planning held with family member Status: Acute Discussion was had between family and ICU care team concerning patients current illness and patient's wishes going forward. Family voices understanding of patient's illness and its severity. Based upon patient's expressed wishes, they want "everything done." As such, patient will remain full code and we will pursue aggressive care. (14) DVT prophylaxis Status: Acute Heparin for DVT prophylaxis. Neuro: Intubated and sedated Pulm: Acute respiratory failure secondary to multilobar pneumonia - Intubated on ventilator - volume control TV 400, PEEP 8.0, FiO2 of 100%. Wean as tolerated - Sputum cultures grew gram + cocci. PCR staph aureus. Continue vancomycin. Azetreonam changed to cefipime for improved coverage - Continue duonebs. Will stop steroids at this time. Cardio: Periodic SVT - Cardizem if patient continues with elevated heart rate - Plan for NACHO due to concern for possible infective endocarditis - Elevated troponin on admission - will trend - Vasopressors for cardiovascular support. Patient will likely require A-line. GI/Fluids/Electrolytes/Hydration - Will hold on any tube feeds today due to severity of patient's illness - Monitor and management electrolytes - Patient 4L positive over last 24 hours. Will be judicious with fluids. - Protonix ppx Renal: Acute on chronic kidney failure, UTI - Increasing creatinine. Will avoid nephrotoxic drugs and hydrate as tolerated. Continue to monitor - Urine culture grew gram negative rods. On appropriate antibiotic coverage Endo: - Continue home synthroid dose - Sliding scale insulin ID: - Sputum cultures growing gram + cocci. Blood cultures growing gram + cocci x 2. Urine cultures growing gram - rods - Continue vancomycin - Aztreonam changed to cefipime for improved pseudomonas coverage Heme/Onc - Heparin and SCDfor DVT prophylaxis. Lines - Right internal jugular central line - ET tube - OG tube - [place] catheter History of Present Illness Consult date: 01/23/17 Reason for consult: pneumonia, other (intubated due to respiratory failure) Chief complaint: Shortness of breath, productive cough History of present illness: Ms Valentin is an 81yo female with PMH of COPD, hypothyroid, and HTN who presented to the emergency room with moderate respiratory distress. She reported shortness of breath and productive cough over the last several days. O2 saturation and breathing improved with BiPAP and patient was admitted to the hospital. Patient was found to have multilobar pneumonia. Cultures grew gram positive cocci and blood PCR revealed staph aureus. She was started on antibiotics and given supportive care. On the floor, patient's respiratory status worsened and patient developed increased work of breathing. She was intubated for imminent respiratory failure and transferred to the ICU. Patient with severe respiratory failure, intubated and sedated on the ventilator. This morning, her temperature was elevated at 101.8. Patient was persistently tachycardia with episodes of SVT that resolved sponaneously. Blood pressure in the 80s/40-50s. Patient's respiratory status and cardiovascular status continued to decline. Around 11am this morning, patient lost palpable pulses and required 2 minutes CPR and 1 dose of epi. She had persistent SVT requiring adenosine and 3 cardioversions. Patient regained pulses and respiratory status stabilized on the ventilator. On exam, patient is sedated. ET tube and right internal jugular central catheter in place. Lung sounds diminished bilaterally with minimal air movement and some fine crackles. Heart rate tachycardic but stable. She is requiring vasopressors to maintain blood pressure. Abdomen is soft, nontender. She has diminished capillary refill. Past Med Surg Social Fam HX - Past Medical History Medical history: CVA, myocardial infarction, osteoporosis Psychiatric history: no psych history - Social History Smoking Status: Former smoker Smokeless Tobacco Status: No Alcohol use: none Drug use: none Medications and Allergies Ibuprofen 400 mg PO TID #14 tablet 01/05/17 [Rx] BuPROPion SR (12 HR) [Wellbutrin SR] 100 mg PO BID 01/18/17 [History] Clopidogrel [Plavix] 75 mg PO DAILY 01/18/17 [History] Fentanyl 100 mcg TD Q72H #5 patch.td72 01/18/17 [Rx] Levothyroxine [Synthroid] 25 mcg PO DAILY 01/18/17 [History] Loperamide [Imodium] 2 mg PO Q6H PRN 01/18/17 [History] Mag Hydrox/Al Hydrox/Simeth [Antacid Suspension] 30 ml PO TID PRN 01/18/17 [ History] Magnesium Hydroxide [Milk of Magnesia] 30 ml PO PRN PRN 01/18/17 [History] Omeprazole [PriLOSEC] 20 mg PO DAILY 01/18/17 [History] Vit C/E/Zinc/Lutein/Zeaxanthin [Ideaxis [facility] Gummies] 1 tab PO DAILY 01/18 [History] Ipratropium/Albuterol Neb [Duoneb] 3 ml IH Q4HR PRN 01/22/17 [History] OxyCODONE/APAP 5/325 [Percocet 5/325 MG] 1 tab PO Q4HR PRN 01/22/17 [History] Allergies aspirin Allergy (Verified 01/22/17 07:10) Heartburn Penicillins Allergy (Verified 01/22/17 07:10) Hives ROS unobtainable: due to endotracheal tube All Systems: A 10-system review of systems was performed and is negative for pertinent findings except as documented above in the HPI. Physical Examination Vital Signs: Vital Signs, Last 4 Hours Temp Pulse Resp BP Pulse Ox Pulse Ox Pulse Ox 01/23/17 14:00 115 24 91/57 87 01/23/17 13:08 20 91/59 91 01/23/17 13:00 99.5 F 114 24 88/41 88 01/23/17 12:00 96 22 89/25 93 01/23/17 11:49 99 99 01/23/17 11:30 96 20 76/43 91 Pulse Ox Pulse Ox 01/23/17 14:00 01/23/17 13:08 01/23/17 13:00 01/23/17 12:00 01/23/17 11:49 98 100 01/23/17 11:30 General appearance: other (intubated and sedated) Eyes: nonicteric ENT: other (ET tube in place) Effort: mildly labored Auscultation: bilateral: diminished breath sounds, rales, rhonchi Cardiovascular: other (Tachycardic with episodes of SVT) Gastrointestinal: soft, non-tender, non-distended Integumentary: other Extremities: no edema, cool, other (prolonged capillary refil) Musculoskeletal: other (cast on left forearm ) unable to assess due to mental status Ventilator Settings Ventilator Settings: Ventilator Settings, Last 8 Hours Ventilator Mode VC+ Ventilator Mode VC+ Ventilator Mode VC+ Ventilator Mode VC+ Ventilator Mode VC+ Ventilator Mode VC+ Ventilator Mode VC+ Ventilator Mode VC+ Ventilator Mode VC+ Ventilator Mode VC+ Ventilator Tidal Volume 400 Setting Ventilator Tidal Volume 400 Setting Ventilator Tidal Volume 400 Setting Ventilator Tidal Volume 400 Setting Ventilator Tidal Volume 400 Setting Ventilator Tidal Volume 400 Setting Ventilator Tidal Volume 400 Setting Ventilator Tidal Volume 400 Setting Ventilator Tidal Volume 400 Setting Ventilator Tidal Volume 400 Setting Ventilator Respiratory Rate 12 Setting Ventilator Respiratory Rate 12 Setting Ventilator Respiratory Rate 12 Setting Ventilator Respiratory Rate 12 Setting Ventilator Respiratory Rate 12 Setting Ventilator Respiratory Rate 12 Setting Ventilator Respiratory Rate 12 Setting Ventilator Respiratory Rate 12 Setting Ventilator Respiratory Rate 16 Setting Ventilator Respiratory Rate 12 Setting Actual Respiratory Rate 25 Actual Respiratory Rate 24 Actual Respiratory Rate 24 Actual Respiratory Rate 24 Actual Respiratory Rate 24 Actual Respiratory Rate 24 Actual Respiratory Rate 24 Actual Respiratory Rate 35 Actual Respiratory Rate 29 Positive End Expiratory 10 Pressure Positive End Expiratory 8 Pressure Positive End Expiratory 10 Pressure Positive End Expiratory 10 Pressure Positive End Expiratory 10 Pressure Positive End Expiratory 8 Pressure Positive End Expiratory 8 Pressure Positive End Expiratory 8 Pressure Positive End Expiratory 7 Pressure Positive End Expiratory 5 Pressure Peak Inspiratory Airway 24 Pressure Peak Inspiratory Airway 23 Pressure Peak Inspiratory Airway 24 Pressure Peak Inspiratory Airway 23 Pressure Peak Inspiratory Airway 23 Pressure Peak Inspiratory Airway 23 Pressure Peak Inspiratory Airway 23 Pressure Peak Inspiratory Airway 19 Pressure Peak Inspiratory Airway 19 Pressure Results - Laboratory Findings CBC and BMP: 01/23/17 11:20 01/23/17 11:20 ABG ABG pH 7.34 pH Units (7.32-7.45) 01/23/17 07:50 ABG pCO2 37 mmHg (35-45) 01/23/17 07:50 ABG pO2 47 mmHg (85-104) L* 01/23/17 07:50 ABG O2 Saturation 80 % (95-98) L 01/23/17 07:50 Abnormal lab findings: Abnormal lab results RBC 3.16 M/mcL (3.82-4.97) L 01/23/17 11:20 Hgb 8.0 g/dL (11.5-15.4) L 01/23/17 11:20 Hct 26.0 % (35.3-44.9) L 01/23/17 11:20 MCV 82.3 fL (83.0-100.0) L 01/23/17 11:20 MCH 25.3 pg (28.0-33.3) L 01/23/17 11:20 MCHC 30.8 g/dL (31.6-35.5) L 01/23/17 11:20 RDW 15.4 % (11.5-14.5) H 01/23/17 11:20 Band Neutrophils % 30.0 % (0-4) H 01/23/17 11:20 Metamyelocytes % 6.0 % (0) H 01/23/17 11:20 Myelocytes % 2.0 % (0) H 01/23/17 11:20 Nucleated RBCs/100 WBC 0.7 /100 WBC (0) H 01/23/17 11:20 Toxic Granulation Present (Not Present) A 01/23/17 11:20 Dohle Bodies Present (Not Present) A 01/23/17 11:20 Large Platelets Present (Not Present) A 01/22/17 08:37 Jessica Cells 1+ (Not Present) A 01/23/17 09:15 ABG pO2 47 mmHg (85-104) L* 01/23/17 07:50 ABG HCO3 20.0 mEQ/L (21-27) L 01/23/17 07:50 ABG O2 Saturation 80 % (95-98) L 01/23/17 07:50 ABG Base Excess -5.3 mEq/L (-2.0 to 3.0) L 01/23/17 07:50 Sodium 135 mEq/L (136-145) L 01/23/17 11:20 Potassium 5.2 mEq/L (3.5-4.5) H 01/23/17 11:20 Chloride 96 mEq/L (98-109) L 01/23/17 11:20 Carbon Dioxide 18 mEq/L (19-29) L 01/23/17 11:20 BUN 63 mg/dL (7-20) H 01/23/17 11:20 Creatinine 3.15 mg/dL (0.57-1.11) H 01/23/17 11:20 Est GFR ( Amer) 17 (> 60) L 01/23/17 11:20 Est GFR (Non-Af Amer) 14 (> 60) L 01/23/17 11:20 Glucose 258 mg/dL (70-99) H 01/23/17 11:20 POC Glucose 168 (58-89) H 01/22/17 21:33 Calculated Osmolality 307 (280-300) H 01/23/17 11:20 Lactic Acid 12.8 mmol/L (0.5-2.2) H* 01/23/17 11:20 Calcium 7.2 mg/dL (8.6-10.8) L 01/23/17 11:20 Ionized Calcium 0.96 mmol/L (1.15-1.35) L 01/23/17 11:20 Phosphorus 6.1 mg/dL (2.3-4.7) H D 01/23/17 11:20 Creatine Kinase 282 Units/L (29-168) H 01/23/17 09:15 Troponin I 0.10 ng/mL (0-0.03) H* 01/23/17 09:15 B-Natriuretic Peptide 1435 pg/mL (0-100) H 01/23/17 04:00 Urine Clarity Cloudy (Clear) A 01/22/17 12:30 Urine Protein 30 mg/dL (Neg-Trace) H 01/22/17 12:30 Urine Blood Small (Negative) H 01/22/17 12:30 Ur Leukocyte Esterase Large (Negative) H 01/22/17 12:30 Urine Microscopic WBC 50-100 per hpf (0-3) H 01/22/17 12:30 Ur Squamous Epith Cells Many per lpf (None-Few) H 01/22/17 12:30 Urine Bacteria Many per hpf (None-Few) H 01/22/17 12:30 Ur Culture Indicated? YES (NO) A 01/22/17 12:30 Staphylococcus sp PCR DETECTED (Not Detect) A 01/22/17 07:52 Staph aureus (PCR) DETECTED (Not Detect) A 01/22/17 07:52 - Microbiology Findings Microbiology Findings: Microbiology, Last 48 Hours 01/22/17 12:30 Urine Culture - Preliminary Urine,Clean Catch Gram Negative Jung 01/23/17 04:15 Sputum Culture - Preliminary Sputum - Diagnostic Findings Chest x-ray: report reviewed, image reviewed - Clinical Findings Intake & Output: Intake & Output 01/22/17 01/23/17 01/23/17 23:59 07:59 15:59 Intake Total 575 / 575 2137 / 2137 872 / 872 Output Total 200 / 200 400 / 400 Balance 375 / 375 1737 / 1737 872 / 872 Consult Discharge Plan - Plan Referrals: Javan Mcintyre MD [Primary Care Provider] - <Tera Blanca - Last Filed: 01/23/17 20:40> Date of Encounter: 01/23/17 All Systems: A 10-system review of systems was performed and is negative for pertinent findings except as documented above in the HPI. Physical Examination Vital Signs: Vital Signs, Last 4 Hours Temp Pulse Resp BP Pulse Ox 01/23/17 15:37 88 01/23/17 15:00 100.7 F H 103 27 101/67 88 01/23/17 14:00 115 24 91/57 87 Ventilator Settings Ventilator Settings: Ventilator Settings, Last 8 Hours Ventilator Mode VC+ Ventilator Mode VC+ Ventilator Mode VC+ Ventilator Mode VC+ Ventilator Mode VC+ Ventilator Mode VC+ Ventilator Mode VC+ Ventilator Tidal Volume 400 Setting Ventilator Tidal Volume 400 Setting Ventilator Tidal Volume 400 Setting Ventilator Tidal Volume 400 Setting Ventilator Tidal Volume 400 Setting Ventilator Tidal Volume 400 Setting Ventilator Tidal Volume 400 Setting Ventilator Respiratory Rate 12 Setting Ventilator Respiratory Rate 12 Setting Ventilator Respiratory Rate 12 Setting Ventilator Respiratory Rate 12 Setting Ventilator Respiratory Rate 12 Setting Ventilator Respiratory Rate 12 Setting Ventilator Respiratory Rate 12 Setting Actual Respiratory Rate 28 Actual Respiratory Rate 25 Actual Respiratory Rate 24 Actual Respiratory Rate 24 Actual Respiratory Rate 24 Actual Respiratory Rate 24 Actual Respiratory Rate 24 Positive End Expiratory 10 Pressure Positive End Expiratory 10 Pressure Positive End Expiratory 8 Pressure Positive End Expiratory 10 Pressure Positive End Expiratory 10 Pressure Positive End Expiratory 10 Pressure Positive End Expiratory 8 Pressure Peak Inspiratory Airway 28 Pressure Peak Inspiratory Airway 24 Pressure Peak Inspiratory Airway 23 Pressure Peak Inspiratory Airway 24 Pressure Peak Inspiratory Airway 23 Pressure Peak Inspiratory Airway 23 Pressure Peak Inspiratory Airway 23 Pressure Results - Laboratory Findings CBC and BMP: 01/23/17 11:20 01/23/17 11:20 ABG ABG pH 7.34 pH Units (7.32-7.45) 01/23/17 07:50 ABG pCO2 37 mmHg (35-45) 01/23/17 07:50 ABG pO2 47 mmHg (85-104) L* 01/23/17 07:50 ABG O2 Saturation 80 % (95-98) L 01/23/17 07:50 Abnormal lab findings: Abnormal lab results RBC 3.16 M/mcL (3.82-4.97) L 01/23/17 11:20 Hgb 8.0 g/dL (11.5-15.4) L 01/23/17 11:20 Hct 26.0 % (35.3-44.9) L 01/23/17 11:20 MCV 82.3 fL (83.0-100.0) L 01/23/17 11:20 MCH 25.3 pg (28.0-33.3) L 01/23/17 11:20 MCHC 30.8 g/dL (31.6-35.5) L 01/23/17 11:20 RDW 15.4 % (11.5-14.5) H 01/23/17 11:20 Band Neutrophils % 30.0 % (0-4) H 01/23/17 11:20 Metamyelocytes % 6.0 % (0) H 01/23/17 11:20 Myelocytes % 2.0 % (0) H 01/23/17 11:20 Nucleated RBCs/100 WBC 0.7 /100 WBC (0) H 01/23/17 11:20 Toxic Granulation Present (Not Present) A 01/23/17 11:20 Dohle Bodies Present (Not Present) A 01/23/17 11:20 Large Platelets Present (Not Present) A 01/22/17 08:37 Jessica Cells 1+ (Not Present) A 01/23/17 09:15 ABG pO2 47 mmHg (85-104) L* 01/23/17 07:50 ABG HCO3 20.0 mEQ/L (21-27) L 01/23/17 07:50 ABG O2 Saturation 80 % (95-98) L 01/23/17 07:50 ABG Base Excess -5.3 mEq/L (-2.0 to 3.0) L 01/23/17 07:50 Sodium 135 mEq/L (136-145) L 01/23/17 11:20 Potassium 5.2 mEq/L (3.5-4.5) H 01/23/17 11:20 Chloride 96 mEq/L (98-109) L 01/23/17 11:20 Carbon Dioxide 18 mEq/L (19-29) L 01/23/17 11:20 BUN 63 mg/dL (7-20) H 01/23/17 11:20 Creatinine 3.15 mg/dL (0.57-1.11) H 01/23/17 11:20 Est GFR ( Amer) 17 (> 60) L 01/23/17 11:20 Est GFR (Non-Af Amer) 14 (> 60) L 01/23/17 11:20 Glucose 258 mg/dL (70-99) H 01/23/17 11:20 POC Glucose 168 (58-89) H 01/22/17 21:33 Calculated Osmolality 307 (280-300) H 01/23/17 11:20 Lactic Acid 12.8 mmol/L (0.5-2.2) H* 01/23/17 11:20 Calcium 7.2 mg/dL (8.6-10.8) L 01/23/17 11:20 Ionized Calcium 0.96 mmol/L (1.15-1.35) L 01/23/17 11:20 Phosphorus 6.1 mg/dL (2.3-4.7) H D 01/23/17 11:20 Creatine Kinase 282 Units/L (29-168) H 01/23/17 09:15 Troponin I 0.10 ng/mL (0-0.03) H* 01/23/17 09:15 B-Natriuretic Peptide 1435 pg/mL (0-100) H 01/23/17 04:00 Urine Clarity Cloudy (Clear) A 01/22/17 12:30 Urine Protein 30 mg/dL (Neg-Trace) H 01/22/17 12:30 Urine Blood Small (Negative) H 01/22/17 12:30 Ur Leukocyte Esterase Large (Negative) H 01/22/17 12:30 Urine Microscopic WBC 50-100 per hpf (0-3) H 01/22/17 12:30 Ur Squamous Epith Cells Many per lpf (None-Few) H 01/22/17 12:30 Urine Bacteria Many per hpf (None-Few) H 01/22/17 12:30 Ur Culture Indicated? YES (NO) A 01/22/17 12:30 Staphylococcus sp PCR DETECTED (Not Detect) A 01/22/17 07:52 Staph aureus (PCR) DETECTED (Not Detect) A 01/22/17 07:52 - Microbiology Findings Microbiology Findings: Microbiology, Last 48 Hours 01/22/17 12:30 Urine Culture - Preliminary Urine,Clean Catch Gram Negative Jung 01/23/17 04:15 Sputum Culture - Preliminary Sputum - Clinical Findings Intake & Output: Intake & Output 01/23/17 01/23/17 01/23/17 07:59 15:59 23:59 Intake Total 2137 / 2137 872 / 872 Output Total 400 / 400 40 / 40 Balance 1737 / 1737 832 / 832 Weight 54.8 kg - Attending Attestation I examined this patient and my medical decision-making was reviewed with the CRIME [employer]ION POLICE OFFICER/PA/Advanced Practice Nurse/Resident Physician. I agree with the documented findings, disposition and treatment plan as described except to the extent set forth below. Patient seen and examined. Labs, radiology, chart personally reviewed. 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 Patient condition deteriorated significantly with lactic acidosis and septic shock. We're called to the room because patient had code blue and she responded to the treatment first time (please see detail of the events under residents note). Before that, I called the daughter because her condition was deteriorating and patient is full code. I had a meeting with the family and told them about the poor prognosis and suspect she will not do good. She had significant hypoxia and tried multiple maneuvers to correct that, tried recruitment with high PEEP and increased FIO2 with partial response. She had central line placed for vasopressors. Her labs deteriorated and more acidotic with lactic acidosis. Patient had fluid bolus because of hypotension and then while daughters in the room, she had asystole and had CPR with epi treatment, unfortunately she didn't respond to the treatment. I met with family and told them will stop the CPR and they agreed. Patient was declared . Cardiovascular: Septic shock and she had SVT with treatment with Adenosine and she was cardioverted. GI: Nutrition per dietary and GI prophylaxis per routine Heme: DVT prophylaxis per routine ID: Continue antibiotics and plan to de-escalation Renal; urine out put and renal funtion reviewed. Appreciate nephrology input. Endorcine: blood glucose is monitored Lines: all lines checked and no evidence of infections Skin: skin care to prevent pressure ulcers per nursing routine care. Skin mottled with evidence of ecchymosis from falls and fracture wrist. I spent 90 min of Critical Care time with this patient. It involved decision making of high complexity to assess, manipulate, and support vital organ system failure and/or to prevent further life threatening deterioration of the patient' s condition. The time involved in the performance of separately reportable procedures was not counted toward critical care time.
[2017-01-23 15:34] VITALS: BP 101/67
[2017-01-23] MEDS ORDERED: Aminoglycoside Consult 1 EACH MC ONE (16:11)
--- NOTE | 2017-01-23 17:05 | Electrocardiograph Report ---
[place] [id number] Test Date: 2017-01-23 Pat Name: Bere Valentin Department: 109 Room: [facility] Gender: F Spoon Maker: EBONI : 1935 Requested By: Rubén Pearce Order Number: [id number] Reading MD: Juanita Ba Measurements Intervals [place] Rate: 112 P: [place]: 0 QRS: 112 QRSD: 137 T: 61 QT: 343 QTc: 409 Interpretive Statements SINUS TACHYCARDIA MARKED RIGHT AXIS DEVIATION RIGHT BUNDLE BRANCH BLOCK Electronically Signed On 01-23-2017 17:03:13 EDT by Juanita Ba
--- NOTE | 2017-01-23 17:07 | Electrocardiograph Report ---
[address] [place], [place] [address] Test Date: 2017-01-23 Pat Name: Bere Valentin Department: 109 Room: [facility] Gender: F : : 1935 Requested By: Rubén Pearce Order Number: [id number] Reading MD: Juanita Ba Measurements Intervals [place] Rate: 151 P: [place]: 0 QRS: 116 QRSD: 126 T: 60 QT: 299 QTc: 385 Interpretive Statements ATRIAL FIBRILLATION WITH RAPID VENTRICULAR RESPONSE RIGHT BUNDLE BRANCH BLOCK LEFT POSTERIOR FASCICULAR BLOCK Electronically Signed On 01-23-2017 17:06:27 EDT by Juanita Ba
--- NOTE | 2017-01-23 17:12 | Procedure Note ---
<Ileana Hagen - Last Filed: 01/23/17 17:57> Date of procedure: 01/23/17 (15:00) Pre-op diagnosis: Septic Shock requiring vasopressors Post-op diagnosis: same Procedure: Attempted left femoral arterial line placement Date: 01/23/2017 Time: 1300 Indication: Hemodynamic monitoring Resident: Claude Langley, PGY3 and Ileana Hagen, PGY1 Attending: Dr. Wyatt Blanca A time-out was completed verifying correct patient, procedure, site, positioning , and special equipment if applicable. Ultrasound was used to evaluate the femoral anatomy and identify the femoral artery and femoral vein. The patient s left groin was prepped and draped in sterile fashion. A 18G needle was introduced under ultrasound guidance. On first attempt, venous blood was drawn. When the needle was inserted into the femoral artery and confirmed by both pulsating blood as well as ultrasound visualization, the guide wire was threaded through the needle. Due to extensive calcification in the artery, we were unable to thread the needle. After a couple attempts, the wire and needle were withdrawn. Direct pressure was held for 7 minutes. Will re-attempt a- line placement at a different site. The patient tolerated the procedure well. Estimated Blood Loss: minimal <Tera Blanca - Last Filed: 01/23/17 20:49> Procedure: Patient needed A-line, unfortunately due to atherosclerotic vascular disease, it was difficult to place line.
--- NOTE | 2017-01-23 17:25 | Event Note ---
<KorinClaude cavazos Sukhi - Last Filed: 01/23/17 17:25> Date of Encounter: 01/23/17 Time of Encounter: 16:55 I was in the patients room with my attending Dr. Blanca. we were evaluating the patient for placing an arterial line. The patient suddenly developed asystole. Compressions were begun at 1640. The patient continued to be in asystole at every pulse and rhythm check thereafter. She would have 6 rounds of CPR and 4 amps of epinephrine. Additionally we gave calcium chloride and an amp of sodium bicarb as she had a rising lactic acid and potassium on her last set of labs. this too was uneffective. Good compressions were maintained throughout the code. Patient had a secure airway in place and respirations were given through the ambu bag/ Et tube. Hs and Ts were reviewed. We also discussed with the family. it was agreed to stop compressions after 6 rounds of CPR. Time of was 1652. <Tera Blanca - Last Filed: 01/23/17 20:46> Date of Encounter: 01/23/17 I examined this patient and my medical decision-making was reviewed with the CHANNEL CEMENTER/PA/Advanced Practice Nurse/Resident Physician. I agree with the documented findings, disposition and treatment plan as described except to the extent set forth below. I have personally was present during this event.
--- NOTE | 2017-01-23 17:29 | Death Note ---
<Claude Langley - Last Filed: 01/23/17 17:26> Discharge Sum: Summary - Date and Time Date of admission: 01/22/17 10:57 Date of : 01/23/17 Time of : 16:52 - Summary Details: Mr. Valentin was an 81 y.o. female who was admitted with Sepsis from pneumonia and UTI. She also had Gram positive Bacteremia. she rapidly declined after admission and required mechanical intubation and transfer to the ICU. She was treated with adequate fluids however she remained hypotensive and wuld require vassopressors. She would also continue to increasing oxygen demand. She would have arrhtymias including SVT and Ventricular Tachycadia with a pulse. She would have loss of pulses at 10:55 AM and would have ROSC after one round of CPR. Following the code she would then have one episdoe of Ventricular Tachycardia with a pulse. This was cardioverted. She would then have SVT that was treated with adenosine and also cardioverted. She would continue to have increasing lactic acid despite being on vasopressors and fluids . She would continue to decline and would have cardiac arrest with asystole at 1640. Time of was at 1652 ( please see event note for details of the code). Cause of was secondary to cardiac arrest which was likely secondary to her septic shock. - Additional Data Attending physician: Rubén Pearce MD Discharge Sum: Diag - PCOD Probable Cause of : Cardiac arrest (in the setting of septic shock) Discharge Sum: Prov - Provider Primary care physician: Javan Mcintyre MD Admitting clinician: Huong John Consults: 01/22/17 13:50 Consult to Coverstitch Binder [CONS] Routine Reason for SW Consult: Pt. from [place] 01/23/17 05:34 Consult to Pulmonology [CONS] Routine Consulting Provider: [facility] Reason for Consult: Sepsis/Acute Resp Failure Call Completed: Yes Pronouncing clinician: Tera Blanca <Tera Blanca - Last Filed: 01/23/17 20:45> Discharge Sum: Summary - Date and Time Date of admission: 01/22/17 10:57 - Additional Data Attending physician: Rubén Pearce MD Discharge Sum: Prov - Provider Primary care physician: Javan Mcintyre MD Consults: 01/22/17 13:50 Consult to Coverstitch Binder [CONS] Routine Reason for SW Consult: Pt. from [place] 01/23/17 05:34 Consult to Pulmonology [CONS] Routine Consulting Provider: [facility] Reason for Consult: Sepsis/Acute Resp Failure Call Completed: Yes - Attending Attestation I examined this patient and my medical decision-making was reviewed with the EARTH MOVING TECHNICIAN/PA/Advanced Practice Nurse/Resident Physician. I agree with the documented findings, disposition and treatment plan as described except to the extent set forth below. Patient condition deteriorated quickly and family updated multiple times, finally she from septic shock and cardiac arrest.
[2017-01-23] MEDS ORDERED: *HR* EPINEPHrine 30 MG/30 ML MDV IM ONE (18:31)
[2017-01-23] MEDS ORDERED: *HR* Magnesium Sulfate 2 GM/50 ML PIGGYBACK IVPB ONE (18:31)
[2017-01-23] MEDS ORDERED: *HR* EPINEPHrine 1 MG/10 ML SYRINGE IVP ONE (18:31)
[2017-01-23] MEDS ORDERED: *HR* Norepinephrine 4 MG/4 ML VIAL IVC ONE (18:31)
[2017-01-23] MEDS ORDERED: *HR* Adenosine 6 MG/2 ML SYRINGE IVP ONE (18:31)
[2017-01-23] MEDS ORDERED: *HR* Amiodarone 150 MG/3 ML VIAL IVPB ONE (18:31)
== END 2017-01-23 18:32 | disposition expired | DRG 871 ==
LOC: EMEROO 07:07 → 2NNU 07:07 → ICNU 21:38
PROVIDERS: ADMIT Internal Medicine Endocrinology, Diabetes & Metabolism; ATTEND Internal Medicine